=== PATIENT | female | born 1985 | race African-American/Black ===

== ENCOUNTER 2019-07-05 10:38 | Emergency (ER) | payer MEDICAID ==
[~2019-07-05] VITALS: Ht 175.3 cm; Wt 157.1 kg
[~2019-07-05 10:38] MED LIST: ALBU0.0912 INH; CONTRACEPTIVE
--- NOTE | 2019-07-05 10:44 | NUR ---
PATIENT AMBULATED TO BED 9.
[2019-07-05 10:46] VITALS: BP 146/86
--- NOTE | 2019-07-05 10:50 | NUR ---
BIB MOTHER W/ C/O SORE THROAT, PRODUCTIVE COUGH, ABD PAIN, AND LOWER EXT PAIN SINCE LAST WEDNESDAY.HX: HTN, ANEMIA, GERD.ABDOMEN SOFT.PATIENT STATES PAIN OF 8/10 AT THIS TIME. PATIENT POSITIONED FOR COMFORT; HOB ELEVATED; BEDRAILS UP X1; BED DOWN. ER MD MADE AWARE OF PT STATUS.
--- NOTE | 2019-07-05 10:55 | NUR ---
Patient being evaluated by DR ROJAS at bedside.
[2019-07-05 11:04] VITALS: BP 146/86
--- NOTE | 2019-07-05 11:04 | NUR ---
Patient discharged with v/s stable. Written and verbal after care instructions given and explained. Patient alert, oriented and verbalized understanding of instructions. Ambulatory with steady gait. All questions addressed prior to discharge. ID band removed. Patient advised to follow up with PMD. Rx of ZOFRAN, PREDNISONE,TAMIFLU, PROMETHAZINE , AERO CHAMBER PLUS WITH MASK given. Patient educated on indication of medication including possible reaction and side effects. Opportunity to ask questions provided and answered. Addendum: 07/05/19 at 1106 by [email or web address] PT DOES NOT WANT PAIN MED AT THIS TIME.
== END 2019-07-05 11:04 | disposition home or self-care (01) ==
LOC: MED 10:38
DX: B34.9 Viral infection, unspecified (principal); J45.909 Unspecified asthma, uncomplicated; I10 Essential (primary) hypertension; K21.9 Gastro-esophageal reflux disease without esophagitis; D64.9 Anemia, unspecified; Z90.89 Acquired absence of other organs
CPT/HCPCS: 99283